=== PATIENT | male | born 1980 | race Caucasian/White ===

== ENCOUNTER 2016-05-11 21:24 | Emergency (ER) | payer OTHER ==
--- NOTE | 2016-05-12 00:53 | ED NURSING NOTES ---
Clinical Report - Nurses [facility] [place] [address] 05/11/2016 21:24 Patient: MIA PRICE TRIAGE Triage time 21:36. Acuity: LEVEL 2. Chief Complaint: SUICIDAL THOUGHTS and HALLUCINATIONS and (pt reports "hearing voices" that tell him to kill himself by cutting his head off. pt reports the voices are getting progressivly louder.). Alert. No acute distress. --21:47 Radha Kelly R.N. 21:36 05/11/16. RR: 15. O2 saturation: 98% on room air. Pain level now: 0/10. --21:47 Radha Kelly R.N. Weight: 99.7 kg stated. Height/Length: 70.5 inches Per Patient. BMI: 31.1. --21:40 Radha Kelly R.N. Medications None. --21:38 Radha Kelly R.N. Allergies No Known Drug Allergy. --21:38 Radha Kelly R.N. History Arrived by private vehicle. Historian: patient. Primary physician (None). ( pt was released from custodial 3 months ago and was on medications then but reports he has not been taking any of them since his release.). Onset. (for two years, worse for past 3 months). SOCIAL HX: Heavy tobacco smoker (cigarette)- 1 pack per day. Heavy alcohol use. History of drug use: heroin, methamphetamines. (last use two weeks ago). SELF HARM ASSESSMENT: A self harm assessment was performed. The patient answered "yes" to the question "Have you recently felt down, depressed, or hopeless?", "Do you have thoughts of harming or killing yourself?" and "Have you recently had thoughts about harming or killing others?" and "no" to the question "Are you here because you tried to hurt yourself?". The patient reports their behavior. In the ED the patient has made suicidal comments and been having hallucinations. --21:47 Radha Kelly R.N. PROBLEMS: Schizophrenia. --21:39 Radha Kelly R.N. ADDITIONAL SURGERIES: Wrist. --21:39 Radha Kelly R.N. Interventions To treatment room. --21:47 Radha Kelly R.N. PHYSICAL ASSESSMENT Ambulatory to room. Patient gowned. GENERAL / NEURO / PSYCH: Alert. Appears in no acute distress. Patient's mood/affect appears flat. Patient appears calm and cooperative. Appears suicidal. He describes constant suicidal thoughts. RESPIRATORY: Respirations not labored. CVS: Capillary refill less than 2 seconds. SKIN: Skin is warm and dry. --21:48 Radha Kelly R.N. NURSING PROGRESS NOTES Two patient identifiers checked. Call light placed in reach. Bed placed in lowest position. Brakes of bed on. --21:48 Radha Kelly R.N. 21:53 05/11/16. BP: 134/71. --21:54 Fern Wilcox Suicide precautions initiated: a safety sweep of the room has been completed. Room made safe. Checks performed every 15 minutes, clothing / valuables removed and placed at the nurse's station. Patient placed in direct sight of the nurse's station. ED Physician has been notified. --21:54 Fern Wilcox ( Breathalyzer 0.000). --22:34 Destin Peguero, ER Tech1 ( PAT team at bedside, plan of care discussed with patient.). --00:15 Fern Wilcox ( Patient discussing plan of care with provider and PAT team). --01:19 Fern Wilcox 02:14 05/12/16. Suicide precautions initiated: a safety sweep of the room is ongoing. ( Patient sleeping, lights dimmed, blankets provided). --04:14 Fern Wilcox 04:15 05/12/16. Suicide precautions initiated: a safety sweep of the room is ongoing. The patient is sleeping. --04:15 Fern Wilcox ( Pts mother calls, pt informed and asks that she be told he is sleeping. Mom asking about pt, mom informed that pt will have to discuss his care with her when he wakes up. phone number taken and given to pt. (Mom, Cherri, )). --05:31 Radha Kelly R.N. Care transferred and report received. --07:18 Julio César Kate R.N. ( Patient resting in room, within line of sight of nurse's station, safety checks being done.). --08:09 Julio César Kate R.N. DISPOSITION / DISCHARGE 08:41 05/12/16. BP: 114/63 (regular adult cuff) taken on the left arm, via an automated monitor, while lying. HR: 58 (regular). RR: 20 (regular). O2 saturation: 97% on room air. Temp: 98.3 F (oral). RN notified. Pain level now: 10/17. Patient is conversant. --08:43 Sujey Crum Departure time: 08:56. Condition at departure: stable. Transferred to [facility]. Transported via ambulance. Report was given to a nurse via a phone call. Report included patient's care, treatment, medications, reviewed medication reconcilliation, and condition (including any recent changes or anticipated changes). All questions were answered. Report was acknowledged and care was transferred. ( Report called to SHANIA Cuellar). Patient's personal items include, sweatshirt and shoes. --08:56 Hanna Covington R.N. Locked/Released at 05/12/2016 8:57 by Hanna Covington R.N.
--- NOTE | 2016-05-12 00:53 | ED CLINICAL REPORT ---
Clinical Report - Physicians/Mid Levels [facility] [address] [place] [address] 05/11/2016 21:24 Patient: MIA PRICE Time Seen: 21:46. Arrived- By private vehicle. Historian- patient. HISTORY OF PRESENT ILLNESS Chief Complaint: AUDITORY HALLUCINATIONS. This started Pt has been hearing voices for years, but over the past 2 months, they have been telling him to cut his head off, and he states he can't sleep because of the voices. PT states the voices are constant, but he can't always understand what they are saying. The patient has experienced situational problems (PT was recently discharged from incarceration after 9 months in assisted. He has been sleeping on his brother's couch since.). He is non-compliant with medication. No recent drug use or alcohol consumption. Has been depressed but eating. Has not been sleeping. He has had anxiety and hallucinations. No anger, unusual behavior, paranoia, suicidal thoughts or self-injury inflicted. He has had moderate grandiose delusions. The symptoms are described as moderate. No injury is present. Similar symptoms previously: Recent medical care: Not recently seen/assessed. REVIEW OF SYSTEMS No headache, dizziness, weakness, chest pain or palpitations. No abdominal pain, vomiting, diarrhea, black stools or numbness. No fever, sore throat, cough, difficulty breathing or urinary frequency. No skin rash, enlarged lymph nodes, joint pain, weight loss or laceration. All systems otherwise negative, except as recorded above. PAST HISTORY Problems: Schizophrenia. Additional Surgeries: Wrist. Medications: None. Allergies: No Known Drug Allergy. SOCIAL HISTORY Smoker- current status unknown. History of drug use: heroin, methamphetamines. ADDITIONAL NOTES The nursing notes have been reviewed. PHYSICAL EXAM Vital Signs: 05/11/2016 21:53 BP: 134/71. 05/11/2016 21:36 RR: 15. O2 saturation: 98%. Pain level now: 0/10. Have been reviewed. Appearance: Alert. No acute distress. Appearance is normal. Patient is. Appears detached. Eyes: Pupils equal, round and reactive to light. Neck: Normal inspection. Neck supple. CVS: Normal heart rate and rhythm. Heart sounds normal. Respiratory: Breath sounds normal. Chest nontender. Abdomen: Soft and nontender. Back: No tenderness. Skin: Skin warm and dry. Normal skin color. Normal skin turgor. Extremities: Extremities exhibit normal ROM. No lower extremity edema. Psych / Neuro: Blunted affect. Cognition normal. He is not disoriented. Thought process normal. He does feel treatment is necessary or appears concerned about his current condition. Cranial nerves normal (as tested). No cerebellar findings. No motor deficit. No sensory deficit. LABS, X-RAYS, AND EKG Laboratory Tests: Urine Drug Screen: (CHRIS: 05/11/2016 22:00) ( MsgRcvd 05/11/2016 22:37) Final results Test Result Flag Units (Reference) AMPHETAMINE/METHAMPHETAMINE NEGATIVE (NEGATIVE) BARBITURATE NEGATIVE (NEGATIVE) BENZODIAZEPINE NEGATIVE (NEGATIVE) CANNABINOID POSITIVE H (NEGATIVE) COCAINE NEGATIVE (NEGATIVE) ECSTASY NEGATIVE (NEGATIVE) METHADONE NEGATIVE (NEGATIVE) OPIATE NEGATIVE (NEGATIVE) The urine drug screen is a qualitative screening test fordrug overdose and abuse. All screen results should beconsidered as presumptive.Drugs screened for are as follows:BenzodiazepinesCocaineAmphetamines/MetamphetaminesTHC (Tetrahydrocannabinol)OpiatesBarbituratesEcstasyMethadonePositive results are unconfirmed. For confirmation, notifythe lab for the specimen to be sent to the reference lab.All confirmations must be performed by a differentmethodology.The ingestion of natural herbal and plant productscontaining Ephedra/Ephedra metabolites can produce in urineone or more substances capable of cross reacting withamphetamine/methamphetamine immunoassays. These testsprovide a preliminary result only. A more specificalternative chemical method must be used to obtain aconfirmed analytical result. . Pulse Oximetry: 05/11/2016 21:36 O2 saturation: 98%. (FIO2 - room air). Interpretation: normal. PROGRESS AND PROCEDURES Course of Care: Pt was evaluated and medically cleared in the ED. The mental health clinician did evaluate the pt, and arranged for inpatient care, to which the pt was agreeable. Patient counseled in person regarding the patient's stable but serious condition, test results, diagnosis and need for transfer. Concerns were addressed. Old medical records reviewed. Disposition: Benefits, risks and alternatives to transfer explained to patient and family. Transferred to [facility]. Condition: stable and serious. CLINICAL IMPRESSION Chronic psychosis with delusions and hallucinations, associated with schizophrenia. INSTRUCTIONS Warnings: Further evaluation is necessary. GENERAL WARNINGS: Return or contact your physician immediately if your condition worsens or changes unexpectedly, if not improving as expected, or if other problems arise. Understanding of the discharge instructions verbalized by patient. Follow-up with: [facility], Certified Mental Health Parts And Service Manager, , , , , Follow up tomorrow. Call for an appointment. Reason for referral: Follow up ER visit for psychosis (hallucinations). (Electronically signed by Vida Menard MD 05/16/2016 17:43)
--- NOTE | 2016-05-12 00:53 | ED ORDER SUMMARY ---
..... Patient: MIA PRICE [facility] VisitID: [id number] [place] [address] 35y, M Registration Date/Time: 05/11/2016 ORDER SHEET Weight: 99.7 kg (stated) Allergies: No Known Drug Allergy GENERAL ORDERS: Urine Drug Screen Urgent (22:19 05/11/2016 Leila VELASQUEZ) (Ack 22:21 IJurca ER Tech1) (22:53 HSoule) Breathalyzer (22:19 05/11/2016 Leila VELASQUEZ) (Ack 22:21 IJurca ER Tech1) (22:33 IJurca ER Tech1) TSH Urgent (22:51 05/11/2016 HSoule verbal order read back to Leila VELASQUEZ) (Ack 22:53 HSoule) (0:15 HSoule) Salicylate Level Urgent (22:51 05/11/2016 HSoule verbal order read back to Leila VELASQUEZ) (Ack 22:53 HSoule) (0:15 HSoule) Acetaminophen Level Urgent (22:51 05/11/2016 HSoule verbal order read back to Leila VELASQUEZ) (Ack 22:53 HSoule) (0:15 HSoule) MEDICATION ORDERS: IV FLUIDS: ORDER SHEET NOTES: [Electronically signed by Hanna Covington R.N. (08:57 05/12/2016)] [Electronically signed by Vida Menard MD (17:43 05/16/2016)] [Electronically locked/signed by Hanna Covington R.N. (08:57 05/12/2016)]
--- NOTE | 2016-05-12 00:53 | ED CLINICAL REPORT ---
Clinical Report - Physicians/Mid Levels [facility] [address] [place] [address] 05/11/2016 21:24 Patient: MIA PRICE Time Seen: 21:46. Arrived- By private vehicle. Historian- patient. HISTORY OF PRESENT ILLNESS Chief Complaint: AUDITORY HALLUCINATIONS. This started Pt has been hearing voices for years, but over the past 2 months, they have been telling him to cut his head off, and he states he can't sleep because of the voices. PT states the voices are constant, but he can't always understand what they are saying. The patient has experienced situational problems (PT was recently discharged from incarceration after 9 months in half-way. He has been sleeping on his brother's couch since.). He is non-compliant with medication. No recent drug use or alcohol consumption. Has been depressed but eating. Has not been sleeping. He has had anxiety and hallucinations. No anger, unusual behavior, paranoia, suicidal thoughts or self-injury inflicted. He has had moderate grandiose delusions. The symptoms are described as moderate. No injury is present. Similar symptoms previously: Recent medical care: Not recently seen/assessed. REVIEW OF SYSTEMS No headache, dizziness, weakness, chest pain or palpitations. No abdominal pain, vomiting, diarrhea, black stools or numbness. No fever, sore throat, cough, difficulty breathing or urinary frequency. No skin rash, enlarged lymph nodes, joint pain, weight loss or laceration. All systems otherwise negative, except as recorded above. PAST HISTORY Problems: Schizophrenia. Additional Surgeries: Wrist. Medications: None. Allergies: No Known Drug Allergy. SOCIAL HISTORY Smoker- current status unknown. History of drug use: heroin, methamphetamines. ADDITIONAL NOTES The nursing notes have been reviewed. PHYSICAL EXAM Vital Signs: 05/11/2016 21:53 BP: 134/71. 05/11/2016 21:36 RR: 15. O2 saturation: 98%. Pain level now: 0/10. Have been reviewed. Appearance: Alert. No acute distress. Appearance is normal. Patient is. Appears detached. Eyes: Pupils equal, round and reactive to light. Neck: Normal inspection. Neck supple. CVS: Normal heart rate and rhythm. Heart sounds normal. Respiratory: Breath sounds normal. Chest nontender. Abdomen: Soft and nontender. Back: No tenderness. Skin: Skin warm and dry. Normal skin color. Normal skin turgor. Extremities: Extremities exhibit normal ROM. No lower extremity edema. Psych / Neuro: Blunted affect. Cognition normal. He is not disoriented. Thought process normal. He does feel treatment is necessary or appears concerned about his current condition. Cranial nerves normal (as tested). No cerebellar findings. No motor deficit. No sensory deficit. LABS, X-RAYS, AND EKG Laboratory Tests: Urine Drug Screen: (CHRIS: 05/11/2016 22:00) ( MsgRcvd 05/11/2016 22:37) Final results Test Result Flag Units (Reference) AMPHETAMINE/METHAMPHETAMINE NEGATIVE (NEGATIVE) BARBITURATE NEGATIVE (NEGATIVE) BENZODIAZEPINE NEGATIVE (NEGATIVE) CANNABINOID POSITIVE H (NEGATIVE) COCAINE NEGATIVE (NEGATIVE) ECSTASY NEGATIVE (NEGATIVE) METHADONE NEGATIVE (NEGATIVE) OPIATE NEGATIVE (NEGATIVE) The urine drug screen is a qualitative screening test fordrug overdose and abuse. All screen results should beconsidered as presumptive.Drugs screened for are as follows:BenzodiazepinesCocaineAmphetamines/MetamphetaminesTHC (Tetrahydrocannabinol)OpiatesBarbituratesEcstasyMethadonePositive results are unconfirmed. For confirmation, notifythe lab for the specimen to be sent to the reference lab.All confirmations must be performed by a differentmethodology.The ingestion of natural herbal and plant productscontaining Ephedra/Ephedra metabolites can produce in urineone or more substances capable of cross reacting withamphetamine/methamphetamine immunoassays. These testsprovide a preliminary result only. A more specificalternative chemical method must be used to obtain aconfirmed analytical result. . Pulse Oximetry: 05/11/2016 21:36 O2 saturation: 98%. (FIO2 - room air). Interpretation: normal. PROGRESS AND PROCEDURES Course of Care: Pt was evaluated and medically cleared in the ED. The mental health clinician did evaluate the pt, and arranged for inpatient care, to which the pt was agreeable. Patient counseled in person regarding the patient's stable but serious condition, test results, diagnosis and need for transfer. Concerns were addressed. Old medical records reviewed. Disposition: Benefits, risks and alternatives to transfer explained to patient and family. Transferred to [facility]. Condition: stable and serious. CLINICAL IMPRESSION Chronic psychosis with delusions and hallucinations, associated with schizophrenia. INSTRUCTIONS Warnings: Further evaluation is necessary. GENERAL WARNINGS: Return or contact your physician immediately if your condition worsens or changes unexpectedly, if not improving as expected, or if other problems arise. Understanding of the discharge instructions verbalized by patient. Follow-up with: [facility], Certified Mental Health Demurrage Man, , , , , Follow up tomorrow. Call for an appointment. Reason for referral: Follow up ER visit for psychosis (hallucinations). (Electronically signed by Vida Menard MD 05/16/2016 17:43)
--- NOTE | 2016-05-12 00:53 | ED NURSING NOTES ---
Clinical Report - Nurses [facility] [place] [address] 05/11/2016 21:24 Patient: MIA PRICE TRIAGE Triage time 21:36. Acuity: LEVEL 2. Chief Complaint: SUICIDAL THOUGHTS and HALLUCINATIONS and (pt reports "hearing voices" that tell him to kill himself by cutting his head off. pt reports the voices are getting progressivly louder.). Alert. No acute distress. --21:47 Radha Kelly R.N. 21:36 05/11/16. RR: 15. O2 saturation: 98% on room air. Pain level now: 0/10. --21:47 Radha Kelly R.N. Weight: 99.7 kg stated. Height/Length: 70.5 inches Per Patient. BMI: 31.1. --21:40 Radha Kelly R.N. Medications None. --21:38 Radha Kelly R.N. Allergies No Known Drug Allergy. --21:38 Radha Kelly R.N. History Arrived by private vehicle. Historian: patient. Primary physician (None). ( pt was released from half-way 3 months ago and was on medications then but reports he has not been taking any of them since his release.). Onset. (for two years, worse for past 3 months). SOCIAL HX: Heavy tobacco smoker (cigarette)- 1 pack per day. Heavy alcohol use. History of drug use: heroin, methamphetamines. (last use two weeks ago). SELF HARM ASSESSMENT: A self harm assessment was performed. The patient answered "yes" to the question "Have you recently felt down, depressed, or hopeless?", "Do you have thoughts of harming or killing yourself?" and "Have you recently had thoughts about harming or killing others?" and "no" to the question "Are you here because you tried to hurt yourself?". The patient reports their behavior. In the ED the patient has made suicidal comments and been having hallucinations. --21:47 Radha Kelly R.N. PROBLEMS: Schizophrenia. --21:39 Radha Kelly R.N. ADDITIONAL SURGERIES: Wrist. --21:39 Radha Kelly R.N. Interventions To treatment room. --21:47 Radha Kelly R.N. PHYSICAL ASSESSMENT Ambulatory to room. Patient gowned. GENERAL / NEURO / PSYCH: Alert. Appears in no acute distress. Patient's mood/affect appears flat. Patient appears calm and cooperative. Appears suicidal. He describes constant suicidal thoughts. RESPIRATORY: Respirations not labored. CVS: Capillary refill less than 2 seconds. SKIN: Skin is warm and dry. --21:48 Radha Kelly R.N. NURSING PROGRESS NOTES Two patient identifiers checked. Call light placed in reach. Bed placed in lowest position. Brakes of bed on. --21:48 aRdha Kelly R.N. 21:53 05/11/16. BP: 134/71. --21:54 Fern Wilcox Suicide precautions initiated: a safety sweep of the room has been completed. Room made safe. Checks performed every 15 minutes, clothing / valuables removed and placed at the nurse's station. Patient placed in direct sight of the nurse's station. ED Physician has been notified. --21:54 Fern Wilcox ( Breathalyzer 0.000). --22:34 Destin Peguero, ER Tech1 ( PAT team at bedside, plan of care discussed with patient.). --00:15 Fern Wilcox ( Patient discussing plan of care with provider and PAT team). --01:19 Fern Wilcox 02:14 05/12/16. Suicide precautions initiated: a safety sweep of the room is ongoing. ( Patient sleeping, lights dimmed, blankets provided). --04:14 Fern Wilcox 04:15 05/12/16. Suicide precautions initiated: a safety sweep of the room is ongoing. The patient is sleeping. --04:15 Fern Wilcox ( Pts mother calls, pt informed and asks that she be told he is sleeping. Mom asking about pt, mom informed that pt will have to discuss his care with her when he wakes up. phone number taken and given to pt. (Mom, Cherri, )). --05:31 Radha Kelly R.N. Care transferred and report received. --07:18 Julio César Kate R.N. ( Patient resting in room, within line of sight of nurse's station, safety checks being done.). --08:09 Julio César Kate R.N. DISPOSITION / DISCHARGE 08:41 05/12/16. BP: 114/63 (regular adult cuff) taken on the left arm, via an automated monitor, while lying. HR: 58 (regular). RR: 20 (regular). O2 saturation: 97% on room air. Temp: 98.3 F (oral). RN notified. Pain level now: 10/17. Patient is conversant. --08:43 Sujey Crum Departure time: 08:56. Condition at departure: stable. Transferred to [facility]. Transported via ambulance. Report was given to a nurse via a phone call. Report included patient's care, treatment, medications, reviewed medication reconcilliation, and condition (including any recent changes or anticipated changes). All questions were answered. Report was acknowledged and care was transferred. ( Report called to SHANIA Cuellar). Patient's personal items include, sweatshirt and shoes. --08:56 Hanna Covington R.N. Locked/Released at 05/12/2016 8:57 by Hanna Covington R.N.
--- NOTE | 2016-05-12 00:53 | ED ORDER SUMMARY ---
..... Patient: MIA PRICE OrderSheet [facility] VisitID: [id number] [place] [address] 35y, M Registration Date/Time: 05/11/2016 ORDER SHEET Weight: 99.7 kg (stated) Allergies: No Known Drug Allergy GENERAL ORDERS: Urine Drug Screen Urgent (22:19 05/11/2016 Leila VELASQUEZ) (Ack 22:21 IJurca ER Tech1) (22:53 HSoule) Breathalyzer (22:19 05/11/2016 Leila VELASQUEZ) (Ack 22:21 IJurca ER Tech1) (22:33 IJurca ER Tech1) TSH Urgent (22:51 05/11/2016 HSoule verbal order read back to Leila VELASQUEZ) (Ack 22:53 HSoule) (0:15 HSoule) Salicylate Level Urgent (22:51 05/11/2016 HSoule verbal order read back to Leila VELASQUEZ) (Ack 22:53 HSoule) (0:15 HSoule) Acetaminophen Level Urgent (22:51 05/11/2016 HSoule verbal order read back to Leila VELASQUEZ) (Ack 22:53 HSoule) (0:15 HSoule) MEDICATION ORDERS: IV FLUIDS: ORDER SHEET NOTES: [Electronically signed by Hanna Covington R.N. (08:57 05/12/2016)] [Electronically signed by Vida Menard MD (17:43 05/16/2016)] [Electronically locked/signed by Hanna Covington R.N. (08:57 05/12/2016)]
--- NOTE | 2016-05-16 17:43 | ED DISCHARGE INSTRUCTIONS ---
Patient: MIA PRICE General Instructions [facility] VisitID: [id number] [place] [address] 35y, M Registration Date/Time: 05/11/2016 Chronic psychosis with delusions and hallucinations, associated with schizophrenia. INSTRUCTIONS Warnings: Further evaluation is necessary. GENERAL WARNINGS: Return or contact your physician immediately if your condition worsens or changes unexpectedly, if not improving as expected, or if other problems arise. Understanding of the discharge instructions verbalized by patient. Follow-up with: Information [facility], [facility] Mental Health Field Administrator, , , , , Follow up tomorrow. Call for an appointment. Reason for referral: Follow up ER visit for psychosis (hallucinations). ADDITIONAL INFORMATION Psychosis Psychosis is a mental health problem. It causes a person to be out of touch with reality and affects a persons daily functioning. There are different kinds of psychosis: Drug-induced (due to alcohol, methamphetamine, cocaine, LSD, PCP and others) Bipolar disorder (formerly called Manic-Depression) Depression Schizophrenia Dementia Symptoms of psychosis can include: Hearing voices that others do not hear Seeing things that others do not see Racing thoughts Lack of energy Feeling extremely fearful Treatment for psychosis depends on the cause. Medicine, with or without psychotherapy, is often used. Home Care: Be sure to take your medicine as directed even if you think you don't need it. Talk with your family about your feelings and thoughts. Follow Up with your counselor, therapist or psychiatrist as advised by our staff. To learn more about this illness and available resources, contact your local mental health organization. National [place] on Mental Illness: www.sergio.org Get Prompt Medical Attention if any of the following occur: Feeling like you want to harm yourself or another Feeling extremely depressed Feeling out of control or being controlled by others Unable to care for yourself You have been given the following additional information: Psychosis (Electronically signed by Vida Menard MD 05/16/2016 17:43)
--- NOTE | 2016-05-16 17:43 | ED MED RECONCILIATION SUMMARY ---
Patient: MIA PRICE Medication Reconciliation Report [facility] VisitID: [id number] [address] [place] [address] 35y, M Registration Date/Time: 05/11/2016 Weight: 99.7 kg Height/Length: 60 in. BMI: 31.1 ALLERGIES: No Known Drug Allergy The patient's Home Medications are listed below: NONE. The source(s) of the original Home Medication information: Not obtained. The following Medications were given to the patient in the Emergency Department: None. The following Medications were prescribed to the patient: None.
--- NOTE | 2016-05-16 17:43 | ED DISCHARGE INSTRUCTIONS ---
Patient: MIA PRICE General Instructions [facility] VisitID: [id number] [place] [address] 35y, M Registration Date/Time: 05/11/2016 Chronic psychosis with delusions and hallucinations, associated with schizophrenia. INSTRUCTIONS Warnings: Further evaluation is necessary. GENERAL WARNINGS: Return or contact your physician immediately if your condition worsens or changes unexpectedly, if not improving as expected, or if other problems arise. Understanding of the discharge instructions verbalized by patient. Follow-up with: Information [facility], [facility] Mental Health Cardiovascular Lab Director, , , , , Follow up tomorrow. Call for an appointment. Reason for referral: Follow up ER visit for psychosis (hallucinations). ADDITIONAL INFORMATION Psychosis Psychosis is a mental health problem. It causes a person to be out of touch with reality and affects a persons daily functioning. There are different kinds of psychosis: Drug-induced (due to alcohol, methamphetamine, cocaine, LSD, PCP and others) Bipolar disorder (formerly called Manic-Depression) Depression Schizophrenia Dementia Symptoms of psychosis can include: Hearing voices that others do not hear Seeing things that others do not see Racing thoughts Lack of energy Feeling extremely fearful Treatment for psychosis depends on the cause. Medicine, with or without psychotherapy, is often used. Home Care: Be sure to take your medicine as directed even if you think you don't need it. Talk with your family about your feelings and thoughts. Follow Up with your counselor, therapist or psychiatrist as advised by our staff. To learn more about this illness and available resources, contact your local mental health organization. National [place] on Mental Illness: www.sergio.org Get Prompt Medical Attention if any of the following occur: Feeling like you want to harm yourself or another Feeling extremely depressed Feeling out of control or being controlled by others Unable to care for yourself You have been given the following additional information: Psychosis (Electronically signed by Vida Menard MD 05/16/2016 17:43)
--- NOTE | 2016-05-16 17:43 | ED MED RECONCILIATION SUMMARY ---
Patient: MIA PRICE Medication Reconciliation Report [facility] VisitID: [id number] [address] [place] [address] 35y, M Registration Date/Time: 05/11/2016 Weight: 99.7 kg Height/Length: 60 in. BMI: 31.1 ALLERGIES: No Known Drug Allergy The patient's Home Medications are listed below: NONE. The source(s) of the original Home Medication information: Not obtained. The following Medications were given to the patient in the Emergency Department: None. The following Medications were prescribed to the patient: None.
--- NOTE | 2016-05-16 17:43 | ED MAR SUMMARY ---
..... Medication Administration Record [facility] [address] [place], [place] [id number] Patient: MIA PRICE Visit ID: [id number] 35y, M Weight: 99.7 kg Height/Length: 70.5 in BMI: 31.1 ALLERGIES: No Known Drug Allergy
--- NOTE | 2016-05-16 17:43 | ED MAR SUMMARY ---
..... Medication Administration Record [facility] [address] [place], [place] [id number] Patient: MIA PRICE Visit ID: [id number] 35y, M Weight: 99.7 kg Height/Length: 70.5 in BMI: 31.1 ALLERGIES: No Known Drug Allergy
== END 2016-05-12 08:56 | disposition home or self-care (01) ==
LOC: ED SRH 21:24
DX: F28 Other psychotic disorder not due to a substance or known physiological condition (principal); F20.81 Schizophreniform disorder; F17.210 Nicotine dependence, cigarettes, uncomplicated
CPT/HCPCS: 92760; 92761; 92762; 92763; 92764; 92765; 92766; 92767; 92780; 93140; 97000